=== PATIENT | female | born 1975 | race African-American/Black ===

== ENCOUNTER 2020-01-10 01:37 | Emergency (ER) | payer BC, OTHER ==
[~2020-01-10] VITALS: Ht 167.6 cm; Wt 82.0 kg
[2020-01-10] MEDS ORDERED: ACETAMINOPHEN 325MG TABLET PO ONE (03:00)
[2020-01-10 08:30] VITALS: BP 124/92
== END 2020-01-10 08:51 | disposition home or self-care (01) ==
LOC: ER 01:50
DX: S40.012A Contusion of left shoulder, initial encounter (principal); Y04.0XXA Assault by unarmed brawl or fight, initial encounter; Y93.89 Activity, other specified; Y92.89 Other specified places as the place of occurrence of the external cause; Y99.8 Other external cause status
CPT/HCPCS: 73030; 81025; 99283